=== PATIENT | male | born 1960 | race Caucasian/White ===

== ENCOUNTER 2017-07-23 18:19 | Emergency (ER) | payer OTHER ==
[2017-07-23 18:34] LABS: EOSINOPHIL (%) 1.5 % (0-5); EOSINOPHIL COUNT 0.1 K/uL (0-0.3); HEMATOCRIT 40.3 % (38.0-50.0); IMMATURE GRANULOCYTE (%) 0.4 % (0.0-0.7); INSTRUMENT ABS NEUTROPHIL CT 4.8 K/uL; LYMPHOCYTE COUNT 2.5 K/uL (1.0-2.8); MCH 28.1 PG (29.0-34.0); MCV 82.8 FL (86-99); MONOCYTE (%) 6.1 % (3-12); MONOCYTE COUNT 0.5 K/uL (0-0.8); NEUTROPHIL (%) 60.2 % (45-76); NEUTROPHIL COUNT 4.8 K/uL (1.8-6.4); PLATELET COUNT 178 K/uL (156-360); RBC DIS.WIDTH-CV 13.2 % (11.8-14.6); RBC DIS.WIDTH-SD 39.7 % (39-53); RED BLOOD COUNT 4.87 M/uL (4.00-5.50)
[2017-07-23 18:50] LABS: AMYLASE 38 IU/L (1-118); CHLORIDE 101 mEq/L (99-109); POTASSIUM 4.1 mEq/L (3.7-5.4); SODIUM 136 mEq/L (136-147)
[2017-07-23 18:51] LABS: GLUCOSE 223 mg/dL (70-99)
[2017-07-23 18:53] LABS: ANION GAP 11 MEQ/L (2-14)
[2017-07-23 18:55] LABS: GFR ESTIMATE (CALCULATED) > 59 mL/min/ (58.99-99999); SERUM ETHYL ALCOHOL < 10 mg/dL
[2017-07-23 18:56] LABS: UREA NITROGEN (BUN) 14 mg/dL (9-23)
[2017-07-23 18:58] LABS: LIPASE 16 U/L (1.0-51.0)
== END 2017-07-23 20:15 | disposition home or self-care (01) ==
LOC: TRA 18:19
PROVIDERS: Emergency Medicine
DX: S50.02XA Contusion of left elbow, initial encounter (principal); M25.512 Pain in left shoulder; M25.552 Pain in left hip; V59.40XA Driver of pick-up truck or van injured in collision with unspecified motor vehicles in traffic accident, initial encounter; Y92.410 Unspecified street and highway as the place of occurrence of the external cause; E11.9 Type 2 diabetes mellitus without complications; Z79.4 Long term (current) use of insulin; M19.012 Primary osteoarthritis, left shoulder; M48.02 Spinal stenosis, cervical region; M47.892 Other spondylosis, cervical region; K76.0 Fatty (change of) liver, not elsewhere classified; M47.896 Other spondylosis, lumbar region; I10 Essential (primary) hypertension; E78.5 Hyperlipidemia, unspecified; J44.9 Chronic obstructive pulmonary disease, unspecified; E66.9 Obesity, unspecified
CPT/HCPCS: 70450; 71010; 71260; 72125; 73060; 73090; 74177; 80048; 81003; 82150; 83690; 85025; 86850; 86900; 86901; 99281; 99285; G0480; J2270